=== PATIENT | female | born 1960 | race Caucasian/White ===

== ENCOUNTER 2021-10-01 10:46 | Emergency (ER) | payer BC, SELFPAY ==
[2021-10-01] MEDS ORDERED: Lidocaine 1% (PF) 30 ML VIAL ONE (11:37)
[2021-10-01] MEDS ORDERED: Bacitracin 1 PK TOP SCH (13:00)
== END 2021-10-01 13:53 | disposition home or self-care (01) ==
LOC: ERS 10:46
DX: S61.317A Laceration without foreign body of left little finger with damage to nail, initial encounter (principal); K21.9 Gastro-esophageal reflux disease without esophagitis; E11.9 Type 2 diabetes mellitus without complications; Z79.899 Other long term (current) drug therapy; W23.0XXA Caught, crushed, jammed, or pinched between moving objects, initial encounter
CPT/HCPCS: 12001; J2001